=== PATIENT | female | born 1975 | race Hispanic/Latino ===

== ENCOUNTER 2024-10-16 10:44 | Emergency (ER) | payer BC ==
[~2024-10-16] VITALS: Ht 149.9 cm; Wt 62.1 kg
[2024-10-16] MEDS ORDERED: ESCITALOPRAM OXA5 MG PO (11:43)
[2024-10-16] MEDS ORDERED: PREGABALIN75 MG PO (11:43)
[2024-10-16] MEDS ORDERED: DEXMETHYLPHENID PO (11:43)
[2024-10-16] MEDS: SODIUM CHLORIDE 0.9% 1000ML 1,000 ML IV STA (12:06)
[2024-10-16 12:09] LABS: BASOPHILS % 0.3 % (0.0-1.0); EOSINOPHILS % 0.2 % (0.0-6.0); HEMATOCRIT 39.7 % (34.2-44.1); HEMOGLOBIN 13.9 g/dL (12.0-16.0); LYMPHOCYTES # (AUTO) 1.1 (1.0-3.2); LYMPHOCYTES % 15.8 % (18.0-39.1); MEAN CORPUSCULAR HEMOGLOBIN 31.4 pg (28-32); MEAN CORPUSCULAR VOLUME 89.6 fL (81-99); MONOCYTES # (AUTO) 0.2 (0.2-0.8); MONOCYTES % 3.2 % (4.4-11.3); NEUTROPHILS # (AUTO) 5.4 (2.1-6.9); NEUTROPHILS % 80.2 % (38.7-80.0); PLATELET COUNT 214 x10e3/uL (140-360); RED BLOOD COUNT 4.43 x10e6/uL (3.6-5.1); RED CELL DISTRIBUTION WIDTH 11.6 % (11.7-14.4); WHITE BLOOD COUNT 6.66 x10e3/uL (4.8-10.8)
[2024-10-16 12:18] LABS: INR 0.92; PROTHROMBIN TIME 12.9 seconds (11.9-14.5)
[2024-10-16 12:23] VITALS: PULSE 78; RESP 16; TEMP 98.7
[2024-10-16 12:28] LABS: ALANINE AMINOTRANSFERASE 10 IU/L (0-55); ALBUMIN 4.4 g/dL (3.5-5.0); ALBUMIN/GLOBULIN RATIO 1.2 (0.8-2.0); ALKALINE PHOSPHATASE 62 IU/L (40-150); ANION GAP 17.5 mmol/L (8-16); BILIRUBIN,TOTAL 0.5 mg/dL (0.2-1.2); BLOOD UREA NITROGEN 12 mg/dL (7-26); BUN/CREATININE RATIO 15 (6-25); CALCIUM 9.6 mg/dL (8.4-10.2); CARBON DIOXIDE 20 mmol/L (22-29); CHLORIDE 106 mmol/L (98-107); CREATINE KINASE 61 IU/L (29-168); CREATININE, SERUM 0.78 mg/dL (0.57-1.11); EST GLOMERULAR FILTRATION RATE 94 ML/MIN (>=60); GLUCOSE 80 mg/dL (74-118); MAGNESIUM 2.1 MG/DL (1.3-2.1); POTASSIUM 4.5 mmol/L (3.5-5.1); SODIUM 139 mmol/L (136-145)
[2024-10-16] MEDS: LORAZEPAM 1 MG TAB PO ONE (12:36)
[2024-10-16 12:48] LABS: THYROID STIMULATING HORMONE 1.512 uIU/mL (0.350-4.940)
[2024-10-16 12:54] LABS: TROPONIN I < 0.001 ng/mL (0-0.300)
[2024-10-16 13:51] VITALS: BP 110/68; PULSE 78; RESP 16; TEMP 98.4; O2SAT 98
== END 2024-10-16 13:54 | disposition home or self-care (01) ==
LOC: ER 11:22
DX: F41.9 Anxiety disorder, unspecified (principal); F98.8 Other specified behavioral and emotional disorders with onset usually occurring in childhood and adolescence; G25.81 Restless legs syndrome; F95.2 Tourette's disorder
CPT/HCPCS: 36415; 71045; 80053; 82550; 83735; 84443; 84484; 85025; 85379; 85610; 93005; 99284; J7030